=== PATIENT | female | born 1970 | race Caucasian/White ===

== ENCOUNTER 2022-06-30 17:04 | Emergency (ER) | payer SELFPAY ==
--- NOTE | 2022-06-30 17:25 | ED_ITS ---
HPI - General Adult General Time Seen by Provider: 17:25 Date Seen: 06/30/22 Chief complaint: Dental/Oral/Mouth Injury/Pain Stated complaint: Tooth Pain Time Seen by Provider: 06/30/22 17:05 Source: patient Mode of arrival: ambulatory Limitations: no limitations History of Present Illness HPI narrative: Patient reports several day history of mouth pain, she has had known poor dentition. She has actually was scheduled prior to will moved to get her teeth removed and start with implants. At this point she has been unable to proceed with this. She has noticed on the left upper gum that she has had some redness and purulence from her tooth area. No other complaints specific complaint Related Data Previous Rx's Medication Instructions Recorded ketorolac 10 mg tablet 10 mg PO TID PRN pain 3 days #10 06/30/22 tabs penicillin V potassium 500 mg 500 mg PO TID 10 days #30 tabs 06/30/22 tablet Allergies Allergy/AdvReac Type Severity Reaction Status Date / Time latex Allergy Verified 06/30/22 17:11 Review of Systems Narrative: Patient has had a history of poor dentition, no marked history of dental infections, nondiabetic, no rigors or chills PFSH PFSH Social History Smoking Status: Current every day smoker What tobacco products do you use: cigarettes Years smoked: 40 Do you use any of these nicotine containing products: None Second hand tobacco smoke exposure: No How often do you have a drink containing alcohol: never How often do you have six or more drinks on one occasion: Never AUDIT-C Alcohol total score: 0 Non-prescribed substance use: denies use service: No Exam Narrative: Exam Narrative: Objective: The patient has very poor dentition, the left upper gum line is mildly reddened and around 1 tooth there is some redness and a little bit of purulence. No specific abscess, no large swelling. Const: Vital Signs, click to edit/add: Vital Signs - 24 hr 06/30/22 17:33 Temperature 97.6 F Pulse Rate [Pulse Oximeter] 92 Respiratory Rate 20 Blood Pressure [Le ft Upper Arm] 114/73 Pulse Oximetry 98 Oxygen Delivery Me thod Room Air Course Vital Signs Vital signs: Initial Vital Signs Temperature 97.6 F 06/30/22 17:33 Temperature Source Temporal Artery Scan 06/30/22 17:33 Pulse Rate 92 06/30/22 17:33 Pulse Rhythm 06/30/22 17:33 Respiratory Rate 20 06/30/22 17:33 Blood Pressure 114/73 06/30/22 17:33 Blood Pressure Mean 86 06/30/22 17:33 Blood Pressure Position Sitting 06/30/22 17:33 Pulse Oximetry 98 06/30/22 17:33 Oxygen Delivery Method 06/30/22 17:33 Vital Signs Temperature 97.6 F 06/30/22 17:33 Pulse Rate 92 06/30/22 17:33 Respiratory Rate 20 06/30/22 17:33 Blood Pressure 114/73 06/30/22 17:33 Pulse Oximetry 98 06/30/22 17:33 Oxygen Delivery Method 06/30/22 17:33 Temperature 97.6 F 06/30/22 17:33 Pulse Rate 92 06/30/22 17:33 Respiratory Rate 20 06/30/22 17:33 Blood Pressure 114/73 06/30/22 17:33 Pulse Oximetry 98 06/30/22 17:33 Oxygen Delivery Method 06/30/22 17:33 Medical Decision Making MDM Narrative Medical decision making narrative: Patient has a gum or tooth infection. Needs penicillin and Toradol for pain control. I would recommend dental appointment as soon as possible. Medicine prescribed to the pharmacy and 1 dose of Toradol and penicillin given here Discharge Plan Discharge Clinical Impression: Infection of tooth Patient Disposition: Home, Self-Care Condition: Stable Additional Instructions: Toradol as needed, Tylenol as needed, penicillin times 10 days, recommend a dental consult. Activity Level: Light activity Discharge Diet: Regular Prescriptions: New ketorolac 10 mg tablet 10 mg PO TID PRN (Reason: pain) 3 Days Qty: 10 0RF penicillin V potassium 500 mg tablet 500 mg PO TID 10 Days Qty: 30 0RF Follow Up/Referrals: Rosaura Juárez DO [Staff Physician] - Stand Alone [facility] Info Inst[facility]
[2022-06-30 17:33] VITALS: BP 114/73; PULSE 92; RESP 20; TEMP 36.4; O2SAT 98; BMI 27.0
[2022-06-30] MEDS: KETOROLAC 10 MG TABLET PO (17:45)
[2022-06-30] MEDS: PENICILLIN VK 250 MG TABLET 500 MG PO (17:45)
== END 2022-06-30 17:46 | disposition home or self-care (01) ==
LOC: ED 17:45
PROVIDERS: Emergency Provider Family Medicine
DX: K04.7 Periapical abscess without sinus (principal)
CPT/HCPCS: 99282; 99283; A9270

== ENCOUNTER 2022-12-14 09:34 | Outpatient (RCR) | payer OTHER, SELFPAY | END 2023-04-13 23:59 | disposition home or self-care (01) | PROVIDERS: Visit Provider Family Medicine | DX: M62.81 Muscle weakness (generalized) (principal); M25.511 Pain in right shoulder; Z51.89 Encounter for other specified aftercare | CPT/HCPCS: 97110; 97162 ==

== ENCOUNTER 2023-06-25 08:16 | Emergency (ER) | payer OTHER, SELFPAY ==
[2023-06-25 08:22] VITALS: BP 138/89; PULSE 87; RESP 18; TEMP 36.8; O2SAT 98; BMI 28.6
--- NOTE | 2023-06-25 08:38 | CRLHL7_ITS ---
For Patients: As a result of the Cures Act, medical imaging exams and procedure reports are released immediately into your electronic medical record. You may view this report before your referring provider. If you have questions, please contact your health care provider. INDICATION: Right shoulder pain. TECHNIQUE: Three views. COMPARISON: None. FINDINGS: Bones: Normal mineralization and alignment. No fracture or dislocation. Soft tissues: 4 mm calcification interposed between the acromion and greater tuberosity of the humerus on the AP externally rotated view consistent with calcific tendinitis of the rotator cuff. IMPRESSION: Rotator cuff calcific tendinitis. Dictated by Jaya Spence MD @ 06/25/2023 9:30:44 AM (Electronically Signed)
--- NOTE | 2023-06-25 08:43 | ED.GENADULT ---
[facility] - General Adult General Date Seen: 06/25/23 Chief complaint: Shoulder Injury/Pain Stated complaint: R shoulder injury Time Seen by Provider: 06/25/23 08:17 Source: patient Mode of arrival: ambulatory Limitations: no limitations History of Present Illness HPI narrative: patient is a 53-year-old female presenting for right shoulder pain. She states she 1st hurt her shoulder several years ago and was told she has a torn rotator cuff. She has never had surgery on it. About 2 weeks ago she was working on her are IV wound she says she hurt the shoulder again and since then the pain has been getting worse. Pain radiates all way down her arm and into her neck. does not have a primary care provider in the area as they just moved. Does have the appointment scheduled for this week. Tried some aspirin for pain without improvement in her symptoms. Related Data Previous Rx's Medication Instructions Recorded ketorolac 10 mg tablet 10 mg PO TID PRN pain 3 days #10 06/30/22 tabs penicillin V potassium 500 mg 500 mg PO TID 10 days #30 tabs 06/30/22 tablet ketorolac 10 mg tablet 10 mg PO TID 5 days #15 tabs 06/25/23 Allergies Allergy/AdvReac Type Severity Reaction Status Date / Time latex Allergy Verified 06/30/22 17:11 Review of Systems Narrative: Negative unless stated in HPI PFSH PFS Social History Smoking Status: Current every day smoker What tobacco products do you use: cigarettes Years smoked: 40 Do you use any of these nicotine containing products: None Second hand tobacco smoke exposure: No How often do you have a drink containing alcohol: never How often do you have six or more drinks on one occasion: Never AUDIT-C Alcohol total score: 0 Non-prescribed substance use: denies use service: No Exam Narrative: Exam Narrative: Const: Well-nourished, Well-developed, in mild distress Eyes: PERRL, no conjunctival injection, and symmetrical lids HENT: Atraumatic external nose and ears. Moist mucous membranes. MSK:Extremities w/o deformity, decreased range of motion noted to right arm secondary to pain. She is tender all over the shoulder and throughout the right arm Skin: Warm, Dry. No rashes or lesions. Neuro: Normal Muscle tone, No focal neurological deficits. Psych: Awake, Alert, & Oriented x3. Appropriate mood and affect. Const: Vital Signs, click to edit/add: Vital Signs - 24 hr 06/25/23 08:22 Temperature 98.3 F Pulse Rate [Right Pulse Oximeter] 87 Respiratory Rate 18 Blood Pressure [Ri ght Upper Arm] 138/89 Pulse Oximetry 98 Oxygen Delivery Me thod Room Air Course Vital Signs Vital signs: Initial Vital Signs Temperature 98.3 F 06/25/23 08:22 Temperature Source Temporal Artery Scan 06/25/23 08:22 Pulse Rate 87 06/25/23 08:22 Respiratory Rate 18 06/25/23 08:22 Blood Pressure 138/89 06/25/23 08:22 Blood Pressure Mean 105 06/25/23 08:22 Blood Pressure Position Sitting 06/25/23 08:22 Pulse Oximetry 98 06/25/23 08:22 Oxygen Delivery Method Room Air 06/25/23 08:22 Vital Signs Temperature 98.3 F 06/25/23 08:22 Pulse Rate 87 06/25/23 08:22 Respiratory Rate 18 06/25/23 08:22 Blood Pressure 138/89 06/25/23 08:22 Pulse Oximetry 98 06/25/23 08:22 Oxygen Delivery Method Room Air 06/25/23 08:22 Temperature 98.3 F 06/25/23 08:22 Pulse Rate 87 06/25/23 08:22 Respiratory Rate 18 06/25/23 08:22 Blood Pressure 138/89 06/25/23 08:22 Pulse Oximetry 98 06/25/23 08:22 Oxygen Delivery Method Room Air 06/25/23 08:22 Medications Administered Medications: Discontinued Medications Generic Name Dose Route Start Last Admin Trade Name Freq PRN Reason Stop Dose Admin Ketorolac Tromethamine 30 mg 06/25/23 08:38 06/25/23 08:44 Ketorolac 30 Mg/Ml Inj IM 06/25/23 08:39 30 mg ONCE ONE Administration Medical Decision Making [facility] Narrative Medical decision making narrative: patient is 53-year-old female presenting for right shoulder pain. She says his history of rotator cuff injury and has re-injured the shoulder 2 weeks ago. She has pain all throat her arm due to this she states. Has been taking aspirin and ibuprofen home without improvement in her symptoms. Will give herself Toradol and x-ray of the right shoulder. The x-ray shows calcified tendinosis which could be causing her symptoms. does not show any other acute abnormalities. After the Toradol her symptoms resolved and she is feeling much better. She is able to be discharged home with Toradol. She will follow-up with orthopedics. Imaging Data Right shoulder x-ray: Radiologist's impression: Rotator cuff calcific tendinitis. Dictated by Jaya Spence MD @ 06/25/2023 9:30:44 AM Discharge Plan Discharge Clinical Impression: Acute shoulder pain Qualifiers: Laterality: right Qualified Code(s): M25.511 - Pain in right shoulder Patient Disposition: Home, Self-Care Condition: Improved Instructions: Calcific Tendinitis (ED) Additional Instructions: take the Toradol 3 times a day as needed for pain. Do not take ibuprofen at the same time. Follow-up with Orthopedics. [phone] Prescriptions: New ketorolac 10 mg tablet 10 mg PO TID 5 Days Qty: 15 0RF No Action ketorolac 10 mg tablet 10 mg PO TID PRN (Reason: pain) 3 Days Qty: 10 0RF penicillin V potassium 500 mg tablet 500 mg PO TID 10 Days Qty: 30 0RF Follow Up/Referrals: Provider,Not a Local [Referring] - Stand Alone Forms: [employer] Info Instructions
[2023-06-25] MEDS: KETOROLAC 30 MG/ML inj IM (08:44)
== END 2023-06-25 09:58 | disposition home or self-care (01) ==
PROVIDERS: Emergency Provider Student in an Organized Health Care Education/Training Program; PCP Family Medicine
DX: M25.511 Pain in right shoulder (principal)
CPT/HCPCS: 73030; 96372; 99282; 99284; J1885

== ENCOUNTER 2023-09-29 11:05 | Emergency (ER) | payer OTHER, SELFPAY ==
[2023-09-29 11:10] VITALS: BP 134/108; PULSE 87; RESP 16; TEMP 36.1; O2SAT 98; BMI 30.8
--- NOTE | 2023-09-29 11:12 | ED.GENADULT ---
HPI - General Adult General Date Seen: 09/29/23 Chief complaint: Neuro Symptoms/Altered Deficit Stated complaint: L side face numb Time Seen by Provider: 09/29/23 11:11 Related Data Home Medications Medication Instructions Recorded Confirmed No Known Home Medications 09/29/23 09/29/23 Allergies Allergy/AdvReac Type Severity Reaction Status Date / Time latex Allergy Verified 09/29/23 11:08 REPLACED BY [facility] PFS Social History Smoking Status: Current every day smoker What tobacco products do you use: cigarettes Years smoked: 40 Do you use any of these nicotine containing products: None Second hand tobacco smoke exposure: No How often do you have a drink containing alcohol: never How often do you have six or more drinks on one occasion: Never AUDIT-C Alcohol total score: 0 Non-prescribed substance use: denies use service: No Discharge Plan Discharge Prescriptions: No Action No Known Home Medications Follow Up/Referrals: Rosaura Juárez DO [Primary Care Provider] -
--- NOTE | 2023-09-29 11:20 | CT_ITS ---
Patient: ADRIAN PA Facility:?[facility] Patient ID:?[id number] Site Patient ID:?[id number]. Site :?[id number] Study:?CT-Head w/o-09/29/2023 11:32:09 AM Ordering Physician:Geovanni Pina Final Report: INDICATION: Left cheek numbness TECHNIQUE: Head CT without contrast. COMPARISON: None. FINDINGS: CSF spaces: Within normal limits for age. Brain parenchyma and extra-axial spaces: There are mild nonspecific low attenuation white matter changes consistent with chronic microvascular disease. No sign of mass effect, hemorrhage, or midline shift. Skull base and calvarium: The visualized paranasal sinuses and mastoid air cells demonstrate no acute or significant findings. The visualized orbits are grossly unremarkable. No skull fractures. IMPRESSION: 1. No evidence of acute intracranial abnormality on this unenhanced CT. 2. Mild nonspecific low attenuation white matter changes consistent with chronic microvascular disease. Please note that all CT scans at this facility use dose modulation, iterative reconstruction, and/or weight-based dosing when appropriate to reduce radiation dose to as low as reasonably achievable. Dictated by Frandy Velazquez MD @ 09/29/2023 11:46:54 AM Signed by:?Frandy Velazquez MD @09/29/2023 11:46:54 AM (Electronic Signature)
--- NOTE | 2023-09-29 11:22 | ED_ITS ---
HPI - General Adult General Chief complaint: Neuro Symptoms/Altered Deficit Stated complaint: L side face numb Time Seen by Provider: 09/29/23 11:11 Related Data Previous Rx's Medication Instructions Recorded clopidogrel 75 mg tablet (Plavix) 75 mg PO DAILY #14 tabs 09/29/23 Allergies Allergy/AdvReac Type Severity Reaction Status Date / Time latex Allergy Verified 09/29/23 11:08 [facility] Social History Smoking Status: Current every day smoker What tobacco products do you use: cigarettes Years smoked: 40 Do you use any of these nicotine containing products: None Second hand tobacco smoke exposure: No How often do you have a drink containing alcohol: never How often do you have six or more drinks on one occasion: Never AUDIT-C Alcohol total score: 0 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 Was sober for a while. Relapsed 1 time 4 weeks ago. service: No Exam Narrative: Exam Narrative: Following initial evaluation, I put in a call to Neurology. Given patient's minor symptoms and absence of objective findings on exam, I did not feel that this needed to be a stroke code. I felt the likelihood of giving lytics in this situation would be extraordinarily low. I did order a head CT and she went over for a noncontrast head CT which by my review was negative. I then spoke with Dr. Pike, who agreed that this would not meet criteria for stroke code. By that time, patient actually was feeling better, had had 2 bowel movements, facial numbness had resolved and she refused labs. I discussed with her that Dr. Pike recommended that she have an MRI to evaluate for possible tiny stroke/TIA. She declines this at this time, she says that she would rather have her primary doctor do this. Dr. Pike had said that in the event that she declined MRI he would recommend putting her on aspirin and Plavix until she is seen in follow-up and stroke is ruled out. She is agreeable to this. Discussed reasons to return such as recurrence of his symptoms, particularly if associated with any weakness or limb symptoms. It is possible this represents some prodromal symptoms and that the patient may develop a Solomon's palsy, but intermittent nature of the symptoms would argue against that. She should make an appointment with her primary doctor as soon as possible, within the next week, and have an outpatient MRI arranged for. Const: Vital Signs, click to edit/add: Vital Signs - 24 hr 09/29/23 11:10 Temperature 97.0 F L Pulse Rate [Pulse Oximeter] 87 Respiratory Rate 16 Blood Pressure [Le ft Upper Arm] 134/108 H Pulse Oximetry 98 Oxygen Delivery Me thod Room Air Course Vital Signs Vital signs: Initial Vital Signs Temperature 97.0 F L 09/29/23 11:10 Temperature Source Temporal Artery Scan 09/29/23 11:10 Pulse Rate 87 09/29/23 11:10 Pulse Rhythm Regular 09/29/23 11:10 Pulse Strength 3+ Normal 09/29/23 11:10 Respiratory Rate 16 09/29/23 11:10 Blood Pressure 134/108 H 09/29/23 11:10 Blood Pressure Mean 116 H 09/29/23 11:10 Blood Pressure Position Sitting 09/29/23 11:10 Pulse Oximetry 98 09/29/23 11:10 Oxygen Delivery Method Room Air 09/29/23 11:10 Vital Signs Temperature 97.0 F L 09/29/23 11:10 Pulse Rate 87 09/29/23 11:10 Respiratory Rate 16 09/29/23 11:10 Blood Pressure 134/108 H 09/29/23 11:10 Pulse Oximetry 98 09/29/23 11:10 Oxygen Delivery Method Room Air 09/29/23 11:10 Temperature 97.0 F L 09/29/23 11:10 Pulse Rate 87 09/29/23 11:10 Respiratory Rate 16 09/29/23 11:10 Blood Pressure 134/108 H 09/29/23 11:10 Pulse Oximetry 98 09/29/23 11:10 Oxygen Delivery Method Room Air 09/29/23 11:10 Medications Administered Medications: Discontinued Medications Generic Name Dose Route Start Last Admin Trade Name Freq PRN Reason Stop Dose Admin Aspirin 324 mg 09/29/23 11:23 09/29/23 11:36 Aspirin 81 Mg Tab.Chew PO 09/29/23 11:24 324 mg ONCE ONE Administration Discharge Plan Discharge Clinical Impression: Left facial numbness Patient Disposition: Home, Self-Care Condition: Improved Instructions: Paresthesia (ED) Additional Instructions: Aspirin 81 mg (baby aspirin) and Plavix as prescribed. Make an appointment to follow-up with your primary doctor and arrange for an outpatient MRI of the brain without contrast to evaluate for possible TIA/stroke. If at any time you have recurrence of symptoms particularly if associated with any facial weakness, numbness on 1 side of your body, or weakness/poor coordination, return to the emergency department immediately. Prescriptions: New clopidogrel [Plavix] 75 mg tablet 75 mg PO DAILY Qty: 14 2RF Follow Up/Referrals: Rosaura Juárez DO [Primary Care Provider] - Stand Alone Forms: [facility] Info Instructions
[2023-09-29] MEDS: ASPIRIN 81 MG TAB.CHEW 324 MG PO (11:36)
== END 2023-09-29 12:06 | disposition home or self-care (01) ==
PROVIDERS: Emergency Provider Emergency Medicine; PCP Family Medicine
DX: G51.8 Other disorders of facial nerve (principal)
CPT/HCPCS: 70450; 80048; 80076; 80306; 81001; 85025; 99284; A9270